=== PATIENT | male | born 1985 | race Caucasian/White ===

== ENCOUNTER 2023-12-26 22:51 | Inpatient (IN) | payer OTHER ==
[2023-12-27 02:00] VITALS: BMI 26.8
[2023-12-27] MEDS ORDERED: AMMONIUM LACTATE 12% LOTION 225 GM BOTTLE TP PRN (09:38)
[2023-12-27] MEDS ORDERED: MAGNESIUM HYDROX 2400MG/30ML ORAL SUSPENSION 30 ML CUP PO PRN (09:38)
[2023-12-27] MEDS ORDERED: LOPERAMIDE HCL 2 MG CAPSULE PO PRN (09:38)
[2023-12-27] MEDS ORDERED: NALOXONE HCL 0.4 MG/ML VIAL IVPUSH PRN (09:38)
[2023-12-27] MEDS ORDERED: BENZONATATE 200 MG CAPSULE PO PRN (09:38)
[2023-12-27] MEDS ORDERED: guaiFENesin 600 MG TABLET.ER (FP) PO PRN (09:38)
[2023-12-27] MEDS ORDERED: BENZOCAINE/MENTHOL (CHLORASEPTIC ) LOZENGE MM PRN (09:38)
[2023-12-27] MEDS ORDERED: METHOCARBAMOL 500 MG TABLET PO PRN (09:38)
[2023-12-27] MEDS ORDERED: NALOXONE HCL (KLOXXADO) 8 MG SPRAY NS PRN (09:38)
[2023-12-27] MEDS ORDERED: POLYETHYLENE GLYCOL (HEALTHYLAX) 3350 17 GM PACKET PO PRN (09:38)
[2023-12-27] MEDS ORDERED: IBUPROFEN 400 MG TABLET (FP) PO PRN (09:38)
[2023-12-27] MEDS ORDERED: ACETAMINOPHEN 325 MG TABLET (FP) PO PRN (09:38)
[2023-12-27] MEDS ORDERED: NICOTINE 21 MG/24 HOURS TOPICAL PATCH TD PRN (09:41)
[2023-12-27] MEDS ORDERED: ONDANSETRON *ODT* 4 MG TABLET SL PRN (09:41)
[2023-12-27] MEDS ORDERED: DICYCLOMINE HCL 10 MG CAPSULE PO PRN (09:41)
[2023-12-27] MEDS ORDERED: BISMUTH SUBSALICYLATE 524 MG/30 ML PO PRN (09:41)
[2023-12-27] MEDS: methaDONE 40 MG, methaDONE 30 MG PO ONE (09:56)
[2023-12-27] MEDS: methaDONE HCL 10 MG TABLET PO ONE (09:58)
[2023-12-27] MEDS: PRENATAL VITAMINS W/ FOLIC ACID TABLET (FP) PO SCH (10:49)
[2023-12-27] MEDS: THIAMINE HCL 100 MG TABLET (FP) PO SCH (21:12)
[2023-12-27] MEDS: MELATONIN 5 MG TABLETS PO SCH (21:12)
[2023-12-28] MEDS ORDERED: methaDONE HCL 10 MG TABLET PO SCH (06:00)
[2023-12-28] MEDS: methaDONE 80 MG, methaDONE 10 MG PO SCH (06:15)
[2023-12-28 13:38] LABS: HEMATOCRIT 40.9 % (35.4-49); HEMOGLOBIN 13.6 GM/dL (11.7-16.9); MCH 29.9 pg (25.7-33.7); MCHC 33.2 g/dl (32.0-35.9); MEAN CELL VOLUME 90.2 fl (80-96); MEAN PLT VOLUME 9.4 fl (7.5-11.1); PLATELET COUNT 126 10^3/uL (134-434); POTASSIUM 4.3 mmol/L (3.5-5.1); RBC 4.54 M/mm3 (4.00-5.60); RDW 14.1 % (11.9-15.9); WHITE BLOOD COUNT 5.4 K/mm3 (4.0-10.0)
[2023-12-28 13:44] LABS: ALBUMIN 3.2 g/dl (3.4-5.0); CALCIUM 9.1 mg/dL (8.5-10.1)
[2023-12-28 13:45] LABS: BLOOD UREA NITROGEN 14.6 mg/dL (7-18)
[2023-12-28 13:47] LABS: CREATININE 0.7 mg/dL (0.55-1.3)
[2023-12-28 13:48] LABS: BILIRUBIN,TOTAL 0.4 mg/dL (0.2-1)
[2023-12-28 13:49] LABS: TOT PROT 6.4 g/dl (6.4-8.2)
[2023-12-30] MEDS ORDERED: methaDONE HCL 40 MG DISPERSABLE TABLET PO SCH (11:04)
[2023-12-30] MEDS: LACTULOSE 20 GM/30 ML UDC (FOR ORAL USE ONLY) PO SCH (14:23)
[2023-12-30] MEDS: MELATONIN 5 MG TABLETS PO SCH (21:19)
[2024-01-02] MEDS: hydrOXYzine PAMOATE 25 MG CAPSULE (FP) PO PRN (06:17)
[2024-01-03 17:41] LABS: HIV INTERPRETATION NEGATIVE (NEGATIVE)
[2024-01-06] MEDS: methaDONE HCL 40 MG DISPERSABLE TABLET PO SCH (06:27)
[2024-01-08] MEDS: NICOTINE POLACRILEX 4 MG LOZENGE BC PRN (09:59)
[2024-01-12] MEDS: IBUPROFEN 600 MG TABLET (FP) PO PRN (18:34)
[2024-01-13] MEDS: NICOTINE POLACRILEX 4 MG GUM BUC PRN (10:12)
[2024-01-15] MEDS: methaDONE HCL 10 MG TABLET PO ONE (13:34)
[2024-01-15] MEDS: MELATONIN 5 MG TABLETS PO PRN (21:12)
[2024-01-16] MEDS ORDERED: methaDONE HCL 10 MG TABLET PO SCH (06:00)
[2024-01-20] MEDS: MAG HYDROX/AL HYDROX/SIMETH 30 ML UNIT-DOSE CUP PO PRN (19:00)
[2024-01-22 07:12] VITALS: RESP 18
[2024-01-23 07:06] VITALS: TEMP 98.4
[2024-01-23 07:07] VITALS: BP 126/88; PULSE 68
== END 2024-01-23 08:46 | disposition home or self-care (01) | DRG 772 ==
LOC: YASAS 22:51 → Y3W 12-27 04:11
PROVIDERS: ADMIT Allergy & Immunology; ATTEND Psychiatry & Neurology Pain Medicine
PROC: HZ42ZZZ Group Counseling for Substance Abuse Treatment, Cognitive-Behavioral (ICD-10-PCS; principal; 2023-12-27)
DX: F11.20 Opioid dependence, uncomplicated (principal); F14.20 Cocaine dependence, uncomplicated; F17.210 Nicotine dependence, cigarettes, uncomplicated; E72.20 Disorder of urea cycle metabolism, unspecified; B18.2 Chronic viral hepatitis C; Z59.00 Homelessness unspecified
CPT/HCPCS: 36415; 80053; 82140; 85027; 86780; 87389; 87635; 93005; 93010